=== PATIENT | male | born 1995 | race Caucasian/White ===

== ENCOUNTER 2018-01-07 08:58 | Emergency (ER) | payer OTHER ==
[2018-01-07] MEDS ORDERED: methylPREDNISolone SOD SUCC 125 MG/2 ML VIAL IVP ONE (09:27)
[2018-01-07] MEDS ORDERED: NS 1,000 ML IV ONE (09:27)
[2018-01-07] MEDS ORDERED: RANITIDINE 50 MG/2 ML VIAL IVP ONE (09:27)
[2018-01-07] MEDS ORDERED: MAG HYDROX/AL HYDROX/SIMETH 30 ML UDCUP PO ONE (09:29)
[2018-01-07] MEDS ORDERED: HYOSCYAMINE SULFATE 0.125 MG TAB PO ONE (09:29)
[2018-01-07] MEDS ORDERED: LIDOCAINE 2% VISCOUS 15 ML UDCUP PO ONE (09:29)
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
[2018-01-07] MEDS ORDERED: IOPAMIDOL (ISOVUE-300) 100 ML BTL ONE (10:38)
[2018-01-07 11:03] LABS: PLATELET COUNT 237 10^3/uL (150-400)
[2018-01-07 11:42] VITALS: BP 136/74
== END 2018-01-07 11:42 | disposition home or self-care (01) ==
DX: K12.2 Cellulitis and abscess of mouth (principal); F17.220 Nicotine dependence, chewing tobacco, uncomplicated; E86.9 Volume depletion, unspecified
CPT/HCPCS: 96374; J2780; J2930; Q9967